=== PATIENT | male | born 1960 | race Two or more races ===

== ENCOUNTER 2020-06-22 16:57 | Inpatient (IN) | payer OTHER ==
[~2020-06-22] VITALS: Ht 180.3 cm; Wt 152.2 kg
[2020-06-22 19:24] LABS: Basophils # (auto) 0 10 ^3/uL (0-0.2); Basophils % (auto) 0.2 % (0.0-2.0); Eosinophils # (auto) 0 10 ^3/uL (0-0.8); Eosinophils % (auto) 0.2 % (0.0-7.0); Lymphocytes # (auto) 0.3 10 ^3/uL (0.4-5.4); Lymphocytes % (auto) 3.2 % (10.0-50.0); Mean Corpuscular Hemoglobin 30.8 pg (28.0-32.0); Mean Corpuscular Hgb Conc. 33.3 g/dL (32.0-36.0); Mean Corpuscular Volume 92.5 fL (80.0-100.0); Monocytes # (auto) 0.7 10 ^3/uL (0-1.3); Neutrophils % (auto) 88.4 % (37.0-80.0); Nucleated Red Blood Cells % 0.1 %; Platelet Count (auto) 372 10^3/uL (140-450); Red Cell Distribution Width 15.3 % (11.8-14.3)
[2020-06-22 19:42] LABS: Albumin 2.3 g/dL (3.4-5.0); Calcium 7.9 mg/dL (8.5-10.1); Potassium 4.6 mmol/L (3.5-5.1)
[2020-06-22 19:48] LABS: BUN/Creatinine Ratio 11.8; Bilirubin, Total 0.3 mg/dL (0.2-1.0); Total Protein 7.4 g/dL (6.4-8.2)
[2020-06-22] MEDS ORDERED: ASPirin 325 MG TAB PO ONE (20:15)
[2020-06-22] MEDS ORDERED: CLOPIDOGREL BISULFATE 75 MG TAB PO ONE (20:15)
[2020-06-22 20:49] LABS: INR 1.03 (0.9-1.15); Partial Thromboplastin Time 31.6 sec (23.0-31.2)
[2020-06-22] MEDS ORDERED: ENOXAPARIN SOD 150 MG/1 ML SYRINGE SC ONE (21:45)
[2020-06-22] MEDS ORDERED: ACETAMINOPHEN 325 MG TAB PO PRN (21:45)
[2020-06-22] MEDS ORDERED: AZITHROMYCIN 500MG/ 250ML 250 ML IV ONE (21:45)
[2020-06-22] MEDS ORDERED: MORPHINE SULF INJ 2 MG/ML SYRINGE 1ML IV PRN (21:45)
[2020-06-22] MEDS ORDERED: NITROGLYCERIN 0.4 MG SL TAB SL PRN (21:45)
[2020-06-22] MEDS: ATORVASTATIN 20 MG TAB PO SCH (22:50)
[2020-06-23 03:00] VITALS: BP 106/68
[2020-06-23] MEDS ORDERED: FURO1TAB31 PO (06:23)
[2020-06-23] MEDS ORDERED: CLOP75TA70 PO (06:23)
[2020-06-23] MEDS ORDERED: ATOR80TA PO (06:23)
[2020-06-23] MEDS ORDERED: PANT40TA2 PO (06:23)
[2020-06-23 08:00] VITALS: BP 139/71
[2020-06-23 09:18] LABS: Basophils # (auto) 0 10 ^3/uL (0-0.2); Basophils % (auto) 0.3 % (0.0-2.0); Eosinophils # (auto) 0 10 ^3/uL (0-0.8); Eosinophils % (auto) 0.2 % (0.0-7.0); Hematocrit 34.4 % (41.0-53.0); Hemoglobin 11.3 g/dL (13.5-17.5); Lymphocytes # (auto) 0.4 10 ^3/uL (0.4-5.4); Lymphocytes % (auto) 5.1 % (10.0-50.0); Mean Corpuscular Hemoglobin 30.5 pg (28.0-32.0); Mean Corpuscular Hgb Conc. 32.9 g/dL (32.0-36.0); Monocytes # (auto) 0.8 10 ^3/uL (0-1.3); Monocytes % (auto) 10.5 % (0.0-12.0); Neutrophils # (auto) 6.5 10 ^3/uL (1.6-8.6); Neutrophils % (auto) 83.9 % (37.0-80.0); Platelet Count (auto) 363 10^3/uL (140-450); Red Cell Distribution Width 15.4 % (11.8-14.3); White Blood Cell 7.8 10^3/uL (4.4-10.8)
[2020-06-23 09:48] LABS: Calcium 7.8 mg/dL (8.5-10.1); Potassium 4.7 mmol/L (3.5-5.1)
[2020-06-23 09:51] LABS: BUN/Creatinine Ratio 12.8; Bilirubin, Total 0.2 mg/dL (0.2-1.0); Total Protein 6.8 g/dL (6.4-8.2)
[2020-06-23] MEDS ORDERED: ASPirin 81 mg TAB PO SCH (10:00)
[2020-06-23] MEDS: AZITHROMYCIN 500MG/ 250ML 250 ML IV SCH (10:01)
[2020-06-23] MEDS: CLOPIDOGREL BISULFATE 75 MG TAB PO SCH (10:01)
[2020-06-23] MEDS: ENOXAPARIN SOD 40 MG/0.4 ML SYRINGE SC SCH (10:01)
[2020-06-23] MEDS: SODIUM CHLORIDE 0.9% 1,000 ML IV SCH ×2 (11:30→23:50)
[2020-06-23 16:00] VITALS: BP 138/76
[2020-06-23] MEDS ORDERED: NIFE1TAB36 PO (16:11)
[2020-06-23] MEDS ORDERED: DULO60CA PO (16:13)
[2020-06-23] MEDS ORDERED: INSUINJ18 SC (16:24)
[2020-06-23] MEDS ORDERED: CARV25TA55 PO (16:24)
[2020-06-23] MEDS ORDERED: ALL300T PO (16:24)
[2020-06-23] MEDS ORDERED: ASPI81CH59 PO (16:24)
[2020-06-23] MEDS ORDERED: COLC1CAP PO (16:24)
[2020-06-23] MEDS ORDERED: POTA10TA51 PO (16:24)
[2020-06-23] MEDS ORDERED: MELA3TAB27 PO (16:24)
[2020-06-23] MEDS ORDERED: NORT25CA PO (16:24)
[2020-06-23] MEDS ORDERED: TER5T PO (16:24)
[2020-06-23] MEDS ORDERED: REMDESIVIR PER PHARMACY 0 ML IV SCH (20:30)
[2020-06-23] MEDS: ATORVASTATIN 20 MG TAB PO SCH (21:27)
[2020-06-23] MEDS: HYDROcodone-ACET 5/325MG TAB PO PRN (21:28)
[2020-06-24] VITALS: BP 135/69
[2020-06-24] MEDS: HYDROcodone-ACET 5/325MG TAB PO PRN ×3 (04:11→18:31)
[2020-06-24 08:00] VITALS: BP 114/64
[2020-06-24] MEDS: ENOXAPARIN SOD 40 MG/0.4 ML SYRINGE SC SCH ×2 (08:46→21:45)
[2020-06-24] MEDS: CLOPIDOGREL BISULFATE 75 MG TAB PO SCH (08:46)
[2020-06-24] MEDS: ASPirin 81 mg TAB PO SCH (08:46)
[2020-06-24] MEDS: AZITHROMYCIN 500MG/ 250ML 250 ML IV SCH (08:46)
[2020-06-24 09:50] LABS: Potassium 4.6 mmol/L (3.5-5.1)
[2020-06-24 09:55] LABS: Albumin 2.1 g/dL (3.4-5.0); BUN/Creatinine Ratio 14.4; Bilirubin, Total 0.3 mg/dL (0.2-1.0); Total Protein 7.1 g/dL (6.4-8.2)
[2020-06-24] MEDS: SODIUM CHLORIDE 0.9% 1,000 ML IV SCH (12:00)
[2020-06-24] MEDS ORDERED: REMDESIVIR 200 MG in NS 210ml LOADING DOSE ADULT IV ONE (15:00)
[2020-06-24 16:00] VITALS: BP 145/94
[2020-06-24] MEDS ORDERED: DEXTROSE (50%) 50ML SYRG IV PRN (19:30)
[2020-06-24] MEDS: CEFEPIME 1 GM in SODIUM CHL 0.9% 50 ML IV SCH (22:56)
[2020-06-25] VITALS (7 sets, daily range): BP systolic 129–164; BP diastolic 56–96
[2020-06-25] MEDS: InsuLIN REG 1unit/0.01ml Soln (100units/ml) SC SCH ×5 (00:40→23:51)
[2020-06-25] MEDS: ATORVASTATIN 20 MG TAB PO SCH ×2 (01:07→22:52)
[2020-06-25] MEDS: HYDROcodone-ACET 5/325MG TAB PO PRN ×3 (01:50→13:35)
[2020-06-25] MEDS: ACCU-CHEK COMFORT CURVE STRIP VI SCH ×5 (06:00→23:51)
[2020-06-25 07:23] LABS: Basophils # (auto) 0 10 ^3/uL (0-0.2); Eosinophils # (auto) 0 10 ^3/uL (0-0.8); Eosinophils % (auto) 0.4 % (0.0-7.0); Lymphocytes # (auto) 0.3 10 ^3/uL (0.4-5.4)
[2020-06-25 07:27] LABS: Basophils % (auto) 0.3 % (0.0-2.0); Hematocrit 33.8 % (41.0-53.0); Hemoglobin 11.2 g/dL (13.5-17.5); Lymphocytes % (auto) 3.9 % (10.0-50.0); Mean Corpuscular Hemoglobin 30.7 pg (28.0-32.0); Mean Corpuscular Hgb Conc. 33.2 g/dL (32.0-36.0); Mean Corpuscular Volume 92.3 fL (80.0-100.0); Monocytes # (auto) 1.1 10 ^3/uL (0-1.3); Neutrophils # (auto) 6.7 10 ^3/uL (1.6-8.6); Neutrophils % (auto) 81.4 % (37.0-80.0); Nucleated Red Blood Cells % 0.1 %; Platelet Count (auto) 483 10^3/uL (140-450); Red Blood Cells 3.66 10^6/uL (4.5-5.90); Red Cell Distribution Width 15.5 % (11.8-14.3); White Blood Cell 8.2 10^3/uL (4.4-10.8)
[2020-06-25 07:49] LABS: Potassium 4.2 mmol/L (3.5-5.1)
[2020-06-25 08:04] LABS: Albumin 2.1 g/dL (3.4-5.0); Bilirubin, Total 0.4 mg/dL (0.2-1.0); Total Protein 7.2 g/dL (6.4-8.2)
[2020-06-25] MEDS: ASPirin 81 mg TAB PO SCH (10:50)
[2020-06-25] MEDS: AZITHROMYCIN 500MG/ 250ML 250 ML IV SCH (10:51)
[2020-06-25] MEDS: ENOXAPARIN SOD 40 MG/0.4 ML SYRINGE SC SCH ×2 (10:51→22:51)
[2020-06-25 13:15] LABS: Urine Amorphous Crystal FEW /hpf (None Seen); Urine Bacteria NONE SEEN /hpf (None Seen); Urine Blood 2+ /uL (Negative); Urine Hyaline Cast FEW /lpf (0 - 2); Urine Specific Gravity 1.015 (1.001-1.035)
[2020-06-25 13:18] LABS: Urine WBC 0 /hpf (0 - 3)
[2020-06-25 13:29] LABS: Creatinine, Urine 110 mg/dL (30.0-125.0); Sodium Urine 41 mmol/L (40-220)
[2020-06-25] MEDS: CEFEPIME 1 GM in SODIUM CHL 0.9% 50 ML IV SCH ×2 (13:34→22:51)
[2020-06-25] MEDS: REMDESIVIR 100mg 100 MG in SODIUM CHL 0.9% 230 ML IV SCH (15:10)
[2020-06-26] MEDS: ACCU-CHEK COMFORT CURVE STRIP VI SCH ×4 (06:00→23:54)
[2020-06-26] MEDS: InsuLIN REG 1unit/0.01ml Soln (100units/ml) SC SCH ×4 (06:00→23:43)
[2020-06-26 07:35] VITALS: BP 150/70
[2020-06-26 08:25] LABS: Albumin 2.1 g/dL (3.4-5.0); Calcium 8.3 mg/dL (8.5-10.1); Potassium 4.1 mmol/L (3.5-5.1)
[2020-06-26 08:30] LABS: BUN/Creatinine Ratio 14.3; Bilirubin, Total 0.4 mg/dL (0.2-1.0); Total Protein 7.2 g/dL (6.4-8.2)
[2020-06-26] MEDS: AZITHROMYCIN 500MG/ 250ML 250 ML IV SCH (09:32)
[2020-06-26] MEDS: ASPirin 81 mg TAB PO SCH (09:32)
[2020-06-26] MEDS: ENOXAPARIN SOD 40 MG/0.4 ML SYRINGE SC SCH ×2 (09:32→22:38)
[2020-06-26] MEDS: CEFEPIME 1 GM in SODIUM CHL 0.9% 50 ML IV SCH ×2 (11:37→22:36)
[2020-06-26 15:00] VITALS: BP 156/64
[2020-06-26] MEDS: REMDESIVIR 100mg 100 MG in SODIUM CHL 0.9% 230 ML IV SCH (15:00)
[2020-06-26 15:31] VITALS: BP 143/63
[2020-06-26 18:01] VITALS: BP 156/64
[2020-06-26] MEDS: ATORVASTATIN 20 MG TAB PO SCH (22:38)
[2020-06-26] MEDS: HYDROcodone-ACET 5/325MG TAB PO PRN (22:39)
[2020-06-27] VITALS: BP 148/106
[2020-06-27] MEDS: TEMAZEPAM 15 MG CAP PO PRN ×2 (00:44→21:38)
[2020-06-27] MEDS: ONDANSETRON HCL 4 MG/2 ML VIAL IV PRN (04:24)
[2020-06-27] MEDS: ACCU-CHEK COMFORT CURVE STRIP VI SCH ×3 (05:34→18:17)
[2020-06-27] MEDS: InsuLIN REG 1unit/0.01ml Soln (100units/ml) SC SCH ×3 (05:34→18:17)
[2020-06-27 07:23] LABS: Hematocrit 32.4 % (41.0-53.0); Hemoglobin 10.8 g/dL (13.5-17.5); Mean Corpuscular Hemoglobin 30.7 pg (28.0-32.0); Mean Corpuscular Hgb Conc. 33.4 g/dL (32.0-36.0); Mean Corpuscular Volume 92.1 fL (80.0-100.0); Platelet Count (auto) 427 10^3/uL (140-450); Red Blood Cells 3.52 10^6/uL (4.5-5.90); Red Cell Distribution Width 15.3 % (11.8-14.3); White Blood Cell 8.5 10^3/uL (4.4-10.8)
[2020-06-27 07:38] LABS: Potassium 3.7 mmol/L (3.5-5.1)
[2020-06-27 07:45] LABS: Albumin 1.9 g/dL (3.4-5.0); BUN/Creatinine Ratio 16.4; Bilirubin, Total 0.4 mg/dL (0.2-1.0); Calcium 8.2 mg/dL (8.5-10.1); Total Protein 6.7 g/dL (6.4-8.2)
[2020-06-27 08:00] VITALS: BP 141/71
[2020-06-27 08:01] LABS: Basophils % (manual) 0 (0.0-2.0); Blast Cells 0; Eosinophils % (manual) 0 (0-7); Metamyelocytes % 0; Myelocytes % 0; Promyelocytes % 0; Reactive Lymphocytes 0
[2020-06-27] MEDS: CEFEPIME 1 GM in SODIUM CHL 0.9% 50 ML IV SCH ×2 (09:59→21:31)
[2020-06-27] MEDS: ASPirin 81 mg TAB PO SCH (09:59)
[2020-06-27] MEDS: ENOXAPARIN SOD 40 MG/0.4 ML SYRINGE SC SCH ×2 (09:59→21:31)
[2020-06-27] MEDS: AZITHROMYCIN 500MG/ 250ML 250 ML IV SCH (09:59)
[2020-06-27 11:20] LABS: Band Neutrophils % (manual) 1; Lymphocytes % (manual) 13 (10.0-50.0); Monocytes % (manual) 9 (0-12)
[2020-06-27] MEDS: HYDROcodone-ACET 5/325MG TAB PO PRN ×2 (12:28→20:21)
[2020-06-27 16:00] VITALS: BP 105/57
[2020-06-27] MEDS: REMDESIVIR 100mg 100 MG in SODIUM CHL 0.9% 230 ML IV SCH (16:35)
[2020-06-27] MEDS: ATORVASTATIN 20 MG TAB PO SCH (21:31)
[2020-06-28] VITALS: BP 143/80
[2020-06-28] MEDS: InsuLIN REG 1unit/0.01ml Soln (100units/ml) SC SCH ×4 (06:00→17:56)
[2020-06-28] MEDS: ACCU-CHEK COMFORT CURVE STRIP VI SCH ×4 (06:08→17:56)
[2020-06-28 06:35] LABS: Eosinophils # (auto) 0.2 10 ^3/uL (0-0.8); Lymphocytes # (auto) 0.6 10 ^3/uL (0.4-5.4); White Blood Cell 9.2 10^3/uL (4.4-10.8)
[2020-06-28 06:38] LABS: Basophils # (auto) 0 10 ^3/uL (0-0.2); Basophils % (auto) 0.4 % (0.0-2.0); Eosinophils % (auto) 2.3 % (0.0-7.0); Hematocrit 30.7 % (41.0-53.0); Hemoglobin 10.5 g/dL (13.5-17.5); Lymphocytes % (auto) 6.2 % (10.0-50.0); Mean Corpuscular Hemoglobin 31.4 pg (28.0-32.0); Mean Corpuscular Hgb Conc. 34.2 g/dL (32.0-36.0); Mean Corpuscular Volume 91.8 fL (80.0-100.0); Monocytes # (auto) 1.5 10 ^3/uL (0-1.3); Monocytes % (auto) 15.9 % (0.0-12.0); Neutrophils # (auto) 6.9 10 ^3/uL (1.6-8.6); Neutrophils % (auto) 75.2 % (37.0-80.0); Nucleated Red Blood Cells % 0.1 %; Platelet Count (auto) 473 10^3/uL (140-450); Red Blood Cells 3.34 10^6/uL (4.5-5.90); Red Cell Distribution Width 15.1 % (11.8-14.3)
[2020-06-28 07:04] LABS: Potassium 3.8 mmol/L (3.5-5.1)
[2020-06-28 07:16] LABS: Albumin 1.9 g/dL (3.4-5.0); BUN/Creatinine Ratio 15.4; Bilirubin, Total 0.4 mg/dL (0.2-1.0); Calcium 8.2 mg/dL (8.5-10.1); Total Protein 6.7 g/dL (6.4-8.2)
[2020-06-28 08:00] VITALS: BP 155/87
[2020-06-28] MEDS: CEFEPIME 1 GM in SODIUM CHL 0.9% 50 ML IV SCH ×2 (10:19→21:09)
[2020-06-28] MEDS: ASPirin 81 mg TAB PO SCH (10:20)
[2020-06-28] MEDS: ENOXAPARIN SOD 40 MG/0.4 ML SYRINGE SC SCH ×2 (10:20→21:50)
[2020-06-28] MEDS: AZITHROMYCIN 500MG/ 250ML 250 ML IV SCH (10:20)
[2020-06-28] MEDS: HYDROcodone-ACET 5/325MG TAB PO PRN ×2 (13:22→20:00)
[2020-06-28] MEDS: REMDESIVIR 100mg 100 MG in SODIUM CHL 0.9% 230 ML IV SCH (14:54)
[2020-06-28 16:00] VITALS: BP 155/92
[2020-06-28] MEDS: TEMAZEPAM 15 MG CAP PO PRN (21:50)
[2020-06-28] MEDS: ATORVASTATIN 20 MG TAB PO SCH (21:50)
[2020-06-28] MEDS: DOPamine 1600MCG/ML D5W 250 ML IV SCH (22:15)
[2020-06-29] VITALS: BP 155/94
[2020-06-29] MEDS: ONDANSETRON HCL 4 MG/2 ML VIAL IV PRN ×2 (00:37→08:58)
[2020-06-29] MEDS: InsuLIN REG 1unit/0.01ml Soln (100units/ml) SC SCH ×5 (00:38→23:31)
[2020-06-29] MEDS: ACCU-CHEK COMFORT CURVE STRIP VI SCH ×5 (05:53→23:31)
[2020-06-29 07:04] LABS: Basophils # (auto) 0 10 ^3/uL (0-0.2); Basophils % (auto) 0.4 % (0.0-2.0); Eosinophils # (auto) 0.2 10 ^3/uL (0-0.8); Eosinophils % (auto) 1.9 % (0.0-7.0); Hematocrit 31.7 % (41.0-53.0); Hemoglobin 10.6 g/dL (13.5-17.5); Lymphocytes # (auto) 0.5 10 ^3/uL (0.4-5.4); Lymphocytes % (auto) 5.6 % (10.0-50.0); Mean Corpuscular Hemoglobin 30.2 pg (28.0-32.0); Mean Corpuscular Hgb Conc. 33.3 g/dL (32.0-36.0); Mean Corpuscular Volume 90.8 fL (80.0-100.0); Monocytes # (auto) 1.5 10 ^3/uL (0-1.3); Monocytes % (auto) 16.9 % (0.0-12.0); Neutrophils # (auto) 6.5 10 ^3/uL (1.6-8.6); Neutrophils % (auto) 75.2 % (37.0-80.0); Nucleated Red Blood Cells % 0.1 %; Platelet Count (auto) 458 10^3/uL (140-450); Red Blood Cells 3.49 10^6/uL (4.5-5.90); Red Cell Distribution Width 15.1 % (11.8-14.3); White Blood Cell 8.6 10^3/uL (4.4-10.8)
[2020-06-29 07:27] LABS: Potassium 3.6 mmol/L (3.5-5.1)
[2020-06-29 07:34] LABS: Albumin 1.9 g/dL (3.4-5.0); BUN/Creatinine Ratio 14.4; Bilirubin, Total 0.4 mg/dL (0.2-1.0); Calcium 8.1 mg/dL (8.5-10.1); Total Protein 6.6 g/dL (6.4-8.2)
[2020-06-29 08:00] VITALS: BP 150/119
[2020-06-29] MEDS: ENOXAPARIN SOD 40 MG/0.4 ML SYRINGE SC SCH ×2 (08:57→21:17)
[2020-06-29] MEDS: ASPirin 81 mg TAB PO SCH (08:57)
[2020-06-29] MEDS: CEFEPIME 1 GM in SODIUM CHL 0.9% 50 ML IV SCH ×2 (10:00→21:17)
[2020-06-29] MEDS: AZITHROMYCIN 500MG/ 250ML 250 ML IV SCH (11:58)
[2020-06-29] MEDS: DOPamine 1600MCG/ML D5W 250 ML IV SCH (14:04)
[2020-06-29 16:00] VITALS: BP 155/97
[2020-06-29] MEDS: METOCLOPRAMIDE HCL 5MG/ml INJ 2ml VIAL IV PRN (16:35)
[2020-06-29] MEDS: HYDROcodone-ACET 5/325MG TAB PO PRN (20:06)
[2020-06-29] MEDS: ATORVASTATIN 20 MG TAB PO SCH (21:17)
[2020-06-29] MEDS: TEMAZEPAM 15 MG CAP PO PRN (21:18)
[2020-06-30] VITALS: BP 150/97
[2020-06-30] MEDS: InsuLIN REG 1unit/0.01ml Soln (100units/ml) SC SCH ×3 (06:00→17:51)
[2020-06-30] MEDS: ACCU-CHEK COMFORT CURVE STRIP VI SCH ×3 (06:01→17:50)
[2020-06-30] MEDS: DOPamine 1600MCG/ML D5W 250 ML IV SCH ×3 (07:16→18:28)
[2020-06-30] MEDS: METOCLOPRAMIDE HCL 5MG/ml INJ 2ml VIAL IV PRN ×2 (07:24→17:50)
[2020-06-30 08:15] VITALS: BP 172/92
[2020-06-30 08:22] LABS: Potassium 4.1 mmol/L (3.5-5.1)
[2020-06-30 08:29] LABS: Albumin 3.2 g/dL (3.4-5.0); BUN/Creatinine Ratio 5.6; Bilirubin, Total 0.5 mg/dL (0.2-1.0); Calcium 8.7 mg/dL (8.5-10.1); Total Protein 7.3 g/dL (6.4-8.2)
[2020-06-30] MEDS: ASPirin 81 mg TAB PO SCH (10:32)
[2020-06-30] MEDS: ENOXAPARIN SOD 40 MG/0.4 ML SYRINGE SC SCH ×2 (10:32→21:08)
[2020-06-30] MEDS: HYDROcodone-ACET 5/325MG TAB PO PRN ×2 (10:32→21:07)
[2020-06-30] MEDS: CEFEPIME 1 GM in SODIUM CHL 0.9% 50 ML IV SCH (10:33)
[2020-06-30] MEDS: AZITHROMYCIN 500MG/ 250ML 250 ML IV SCH (10:34)
[2020-06-30] MEDS: FUROSEMIDE 100 MG/10ML VIAL IV SCH (13:28)
[2020-06-30 16:00] VITALS: BP 177/86
[2020-06-30] MEDS ORDERED: amLODIPine BESYLATE 5 MG TAB PO ONE (16:15)
[2020-06-30 16:34] VITALS: BP 177/86
[2020-06-30] MEDS: TEMAZEPAM 15 MG CAP PO PRN (21:06)
[2020-06-30] MEDS: ATORVASTATIN 20 MG TAB PO SCH (21:07)
[2020-06-30] MEDS ORDERED: CEFEPIME 1 GM in SODIUM CHL 0.9% 50 ML IV SCH (22:00)
[2020-07-01] VITALS: BP 145/70
[2020-07-01] MEDS: ACCU-CHEK COMFORT CURVE STRIP VI SCH ×4 (00:13→18:08)
[2020-07-01] MEDS: InsuLIN REG 1unit/0.01ml Soln (100units/ml) SC SCH ×4 (00:18→18:00)
[2020-07-01] MEDS: hydrALAZINE HCL 10 MG TAB PO SCH ×3 (06:11→22:13)
[2020-07-01] MEDS: METOCLOPRAMIDE HCL 5MG/ml INJ 2ml VIAL IV PRN (07:41)
[2020-07-01 08:00] VITALS: BP 140/86
[2020-07-01 08:11] LABS: Calcium 8.2 mg/dL (8.5-10.1); Potassium 3.3 mmol/L (3.5-5.1)
[2020-07-01 08:17] LABS: BUN/Creatinine Ratio 10.6; Bilirubin, Total 0.4 mg/dL (0.2-1.0); Total Protein 6.9 g/dL (6.4-8.2)
[2020-07-01] MEDS: ASPirin 81 mg TAB PO SCH (09:36)
[2020-07-01] MEDS: AZITHROMYCIN 500MG/ 250ML 250 ML IV SCH (09:36)
[2020-07-01] MEDS: FUROSEMIDE 100 MG/10ML VIAL IV SCH (09:36)
[2020-07-01] MEDS: amLODIPine BESYLATE 5 MG TAB PO SCH (09:36)
[2020-07-01] MEDS: ENOXAPARIN SOD 40 MG/0.4 ML SYRINGE SC SCH ×2 (09:36→22:12)
[2020-07-01] MEDS ORDERED: POTASSIUM CHL 20 Meq TABLET PO ONE (14:00)
[2020-07-01 16:00] VITALS: BP 133/75
[2020-07-01] MEDS: DOPamine 1600MCG/ML D5W 250 ML IV SCH (16:29)
[2020-07-01] MEDS: HYDROcodone-ACET 5/325MG TAB PO PRN (22:12)
[2020-07-01] MEDS: TEMAZEPAM 15 MG CAP PO PRN (22:12)
[2020-07-01] MEDS: ATORVASTATIN 20 MG TAB PO SCH (22:12)
[2020-07-02] VITALS: BP 126/62
[2020-07-02] MEDS: ACCU-CHEK COMFORT CURVE STRIP VI SCH ×4 (00:14→18:00)
[2020-07-02] MEDS: InsuLIN REG 1unit/0.01ml Soln (100units/ml) SC SCH ×4 (00:14→18:00)
[2020-07-02] MEDS: hydrALAZINE HCL 10 MG TAB PO SCH ×2 (05:59→14:28)
[2020-07-02 08:00] VITALS: BP 141/93
[2020-07-02] MEDS: AZITHROMYCIN 500MG/ 250ML 250 ML IV SCH (09:57)
[2020-07-02] MEDS: FUROSEMIDE 100 MG/10ML VIAL IV SCH (09:57)
[2020-07-02] MEDS: ENOXAPARIN SOD 40 MG/0.4 ML SYRINGE SC SCH (09:58)
[2020-07-02] MEDS: amLODIPine BESYLATE 5 MG TAB PO SCH (09:58)
[2020-07-02] MEDS: ASPirin 81 mg TAB PO SCH (09:58)
[2020-07-02] MEDS: ONDANSETRON HCL 4 MG/2 ML VIAL IV PRN (10:19)
[2020-07-02] MEDS: HYDROcodone-ACET 5/325MG TAB PO PRN (10:20)
[2020-07-02] MEDS ORDERED: DOPamine 1600MCG/ML D5W 250 ML IV SCH (12:00)
[2020-07-02 14:19] LABS: Potassium 3.3 mmol/L (3.5-5.1)
[2020-07-02] MEDS ORDERED: AMLO-496 PO (15:18)
[2020-07-02 16:00] VITALS: BP 129/70
[2020-07-02] MEDS ORDERED: POTASSIUM CHL 20 Meq TABLET PO ONE (16:00)
== END 2020-07-02 20:12 | disposition home or self-care (01) | DRG 871 ==
LOC: ER 16:57 → EDBD 16:57 → TELE 21:36 → TELE-WESTW 06-23 02:55
PROVIDERS: ADMIT Nurse Practitioner; ATTEND Internal Medicine Nephrology
PROC: XW033E5 Introduction of Remdesivir Anti-infective into Peripheral Vein, Percutaneous Approach, New Technology Group 5 (ICD-10-PCS; 2020-06-23)
PROC: XW13325 Transfusion of Convalescent Plasma (Nonautologous) into Peripheral Vein, Percutaneous Approach, New Technology Group 5 (ICD-10-PCS; principal; 2020-06-25)
DX: A41.89 Other specified sepsis (principal); U07.1 COVID-19; J12.82 Pneumonia due to coronavirus disease 2019; J96.01 Acute respiratory failure with hypoxia; I21.A1 Myocardial infarction type 2; I50.33 Acute on chronic diastolic (congestive) heart failure; N17.0 Acute kidney failure with tubular necrosis; I13.0 Hypertensive heart and chronic kidney disease with heart failure and stage 1 through stage 4 chronic kidney disease, or unspecified chronic kidney disease; N18.4 Chronic kidney disease, stage 4 (severe); J44.0 Chronic obstructive pulmonary disease with (acute) lower respiratory infection; Z68.42 Body mass index [BMI] 45.0-49.9, adult; R65.20 Severe sepsis without septic shock; E78.5 Hyperlipidemia, unspecified; F32.9 Major depressive disorder, single episode, unspecified; E66.01 Morbid (severe) obesity due to excess calories; E11.22 Type 2 diabetes mellitus with diabetic chronic kidney disease; E11.65 Type 2 diabetes mellitus with hyperglycemia; I25.10 Atherosclerotic heart disease of native coronary artery without angina pectoris; E11.21 Type 2 diabetes mellitus with diabetic nephropathy; Z79.4 Long term (current) use of insulin; Z80.3 Family history of malignant neoplasm of breast; Z81.8 Family history of other mental and behavioral disorders; Z82.49 Family history of ischemic heart disease and other diseases of the circulatory system; Z82.5 Family history of asthma and other chronic lower respiratory diseases; Z87.891 Personal history of nicotine dependence; Z83.3 Family history of diabetes mellitus
CPT/HCPCS: 36415; 36600; 71045; 76775; 80048; 80053; 81001; 82570; 82728; 82805; 82962; 83036; 83605; 83880; 84300; 84484; 85007; 85025; 85027; 85379; 85610; 85730; 86850; 86900; 86901; 87426; 93005; 93306; 93970; 94640; 96365; 96366; 96372; G0378; J1815; J2405